=== PATIENT | female | born 1960 | race African-American/Black ===

== ENCOUNTER 2020-10-05 15:13 | Emergency (ER) | payer BC ==
[~2020-10-05] VITALS: Ht 167.6 cm; Wt 131.1 kg
--- NOTE | 2020-10-05 19:21 | NUR ---
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
--- NOTE | 2020-10-05 19:25 | NUR ---
"SOMETHING SNAPPED ON MY LEG WHILE BOWLING" C/O RIGHT HIP/THIGH PAIN. UNABLE TO BEAR WEIGHT ON RIGHT LEG. No gross defomity (shortening/rotation), cms intact ERP to bedside- plan to CT for "potential kati fracture."
[2020-10-05] MEDS ORDERED: KETOROLAC 30 MG/1 ML ONE (20:27)
[2020-10-05] MEDS ORDERED: ACETAMINOPHEN 500 MG TABLET ONE (20:27)
[2020-10-05] MEDS ORDERED: ACETAMINOPHEN 500 MG TABLET PO ONE (20:30)
[2020-10-05] MEDS ORDERED: KETOROLAC 30 MG/1 ML IM ONE (20:30)
--- NOTE | 2020-10-05 21:13 | NUR ---
WITH REASSESSMENT-PAIN IMPROVED NOW ABLE TO WALK WITH MINIMAL PAIN ERP MADE AWARE
[2020-10-05] MEDS ORDERED: HYDROcodone/APAP 5/325 TABLET ONE (21:18)
[2020-10-05 21:28] VITALS: BP 137/79
[2020-10-05] MEDS ORDERED: HYDROcodone/APAP 5/325 TABLET PO ONE (21:30)
== END 2020-10-05 21:31 | disposition home or self-care (01) ==
LOC: ED 20:55
DX: G89.11 Acute pain due to trauma (principal); M25.551 Pain in right hip; M79.651 Pain in right thigh; I10 Essential (primary) hypertension; X58.XXXA Exposure to other specified factors, initial encounter; Y93.89 Activity, other specified; Y92.89 Other specified places as the place of occurrence of the external cause; Y99.8 Other external cause status
CPT/HCPCS: 73502; 73700; 96372; 99284; J1885